=== PATIENT | female | born 1950 | race Caucasian/White ===

== ENCOUNTER 2016-06-27 12:54 | Emergency (ER) | payer OTHER ==
[2016-06-27 13:03] VITALS: BP 123/80; PULSE 99; TEMP 98.5; BMI 21.1
[2016-06-27] MEDS ORDERED: OXYCODONE/APAP 5/325MG COMBO TABLET PO ONE (13:28)
[2016-06-27] MEDS ORDERED: OXYCODONE/APAP 5/325MG COMBO TABLET ONE (13:34)
--- NOTE | 2016-06-27 13:41 | PDOC ---
History of Present Illness - General Chief Complaint: Pain Stated Complaint: RT SIDE PAIN, RASH Time Seen by Provider: 06/27/16 13:05 History Source: Patient Exam Limitations: No Limitations - History of Present Illness Initial Comments: 06/27/16 13:36 65-year-old female with no past medical history presents to the ED with complaints of painful burning stabbing rash to the right abdomen radiating to her right back since yesterday. Patient denies any recent illness or recent stress. Patient also denies any recent vaccinations. Patient denies any fever difficulty breathing, chest pain, nausea, or diarrhea. Patient states took 800 mg 2 yesterday with no effect and decided come to the ER today. Patient when questioned about childhood illnesses states she did have moderate case of chickenpox. Timing/Duration: 24 hours Severity: moderate Associated Symptoms: reports: rash Past History - Past Medical History Allergies/Adverse Reactions: Allergies Allergy/AdvReac Type Severity Reaction Status Date / Time Penicillins Allergy Rash Verified 06/27/16 13:03 Home Medications: Ambulatory Orders Oxycodone HCl/Acetaminophen [Percocet 5-325 mg Tablet] 1 - 2 tab PO Q6H PRN #12 tab MDD 4 06/27/16 Valacyclovir HCl [Valtrex] 1,000 mg PO TID #21 tablet 06/27/16 Other medical history: OSTEOPOROSIS - Psycho/Social/Smoking Cessation Hx Anxiety: No Suicidal Ideation: No Smoking History: Never smoked Hx Alcohol Use: No Drug/Substance Use Hx: No Substance Use Type: None Patient Lives Alone: Yes Lives with/in: lives alone Review of Systems - Review of Systems Able to Perform ROS?: Yes Constitutional: No: Symptoms Reported HEENTM: No: Symptoms Reported Respiratory: No: Symptoms reported Cardiac (ROS): No: Symptoms Reported ABD/GI: No: Symptoms Reported : No: Symptoms Reported Musculoskeletal: No: Symptoms Reported Integumentary: Yes: Rash. No: Pruritus Neurological: No: Symptoms reported Endocrine: No: Symptoms Reported *Physical Exam - Vital Signs Last Vital Signs Temp Pulse Resp BP Pulse Ox 98.5 F 99 H 20 123/80 97 06/27/16 12:58 06/27/16 12:58 06/27/16 12:58 06/27/16 12:58 06/27/16 12:58 - Physical Exam General Appearance: Yes: Nourished, Appropriately Dressed. No: Apparent Distress HEENT: positive: EOMI, ELÍAS, Pharynx Normal. negative: Pale Conjunctivae Neck: positive: Lymphadenopathy (R), Lymphadenopathy (L) Respiratory/Chest: positive: Lungs Clear, Normal Breath Sounds. negative: Chest Tender, Respiratory Distress, Accessory Muscle Use Cardiovascular: positive: Regular Rhythm, Regular Rate. negative: Murmur Gastrointestinal/Abdominal: positive: Soft. negative: Distended, Tenderness Integumentary: positive: Rash (Patient with erythematous cluster/linear papules/ vesicles to the right upper abdomen right upper flank and right thoracic region following the dermatome. Surrounding skin intact. ) Neurologic: positive: Normal Mood/Affect, Motor Strength 5/5 (ambulatory) ED Treatment Course - Medications Given in the ED: ED Medications Discontinued Medications Generic Name Dose Route Start Last Admin Trade Name Freq PRN Reason Stop Dose Admin Oxycodone/Acetaminophen 1 combo 06/27/16 13:28 06/27/16 13:35 Percocet 5/325 - PO 06/27/16 13:29 1 combo ONCE ONE Administration Medical Decision Making - Medical Decision Making 06/27/16 13:39 Patient with nonpruritic painful stabbing rash to her right abdomen spreading to her right mid back since yesterday. Patient states had a moderate case of chickenpox as a child and denies any recent stressors or illnesses. Patient on exam presents as shingles. Patient will be given a dose of Percocet secondary to pain and will be given a prescription for Valtrex upon discharge *DC/Admit/Observation/Transfer Diagnosis at time of Disposition: Shingles Qualifiers: Herpes zoster complications: without complications Qualified Code(s): B02.9 - Zoster without complications - Discharge Dispostion Disposition: HOME Condition at time of disposition: Good - Prescriptions Prescriptions: Oxycodone HCl/Acetaminophen [Percocet 5-325 mg Tablet] 1 - 2 tab PO Q6H PRN #12 tab MDD 4 PRN Reason: Pain Valacyclovir HCl [Valtrex] 1,000 mg PO TID #21 tablet - Referrals Referrals: Rico Medina MD [Primary Care Provider] - - Patient Instructions Printed Discharge Instructions: DI for Shingles Additional Instructions: I recommend apply no topical city affected areas allowing air to dry. Avoid touching area. I also recommend no contact with females or newborns until you complete Valtrex. May take Percocet for pain.
== END 2016-06-27 13:48 | disposition home or self-care (01) ==
LOC: JERFT 12:54
DX: B02.9 Zoster without complications (principal); M81.0 Age-related osteoporosis without current pathological fracture
CPT/HCPCS: 99281-25

== ENCOUNTER 2017-06-27 17:06 | Emergency (ER) | payer OTHER ==
--- NOTE | 2017-06-27 17:13 | PDOC ---
Rapid Medical Evaluation Time Seen by Provider: 06/27/17 17:07 Medical Evaluation: Allergies Allergy/AdvReac Type Severity Reaction Status Date / Time Penicillins Allergy Rash Verified 06/27/17 17:07 06/27/17 17:08 The patient presents with a chief complaint of: [Fall, one hour prior. Was standing on a chair and fell off. Right arm pain and hit right side of head, No LOC. No Vomiting. On ASA. ] I have performed a brief in-person evaluation of this patient. Pertinent physical exam findings: vss, [Edema and bruising to the right elbow. Decreased mobility to the left shoulder pain on palpation tot he left ribs. ] I have ordered the following: [Xray_ Right shoulder, right elbow, Right humerus, Right ribs. ] The patient will proceed to the ED for further evaluation. Discharge Disposition - Diagnosis Fall - Referrals - Patient Instructions - Post Discharge Activity
[2017-06-27 17:14] VITALS: BP 147/75; PULSE 85; TEMP 98.1; BMI 21.1
[2017-06-27] MEDS ORDERED: KETOROLAC TROMETHAMINE 30 MG/1 ML VIAL IM ONE (17:53)
[2017-06-27] MEDS ORDERED: KETOROLAC TROMETHAMINE 30 MG/1 ML VIAL ONE (17:54)
--- NOTE | 2017-06-27 18:10 | PDOC ---
History of Present Illness - General Chief Complaint: Injury Stated Complaint: FALL INJURY Time Seen by Provider: 06/27/17 17:07 History Source: Patient Exam Limitations: No Limitations - History of Present Illness Initial Comments: 06/27/17 18:07 66 yr female was standing up on a chair and fell injured her right arm and elbow. no head trauma denies LOC. daughter translating at bedside. Occurred: reports: this afternoon Severity: reports: moderate Pain Location: reports: upper extremity (right humerus, elbow) Past History - Past Medical History Allergies/Adverse Reactions: Allergies Allergy/AdvReac Type Severity Reaction Status Date / Time Penicillins Allergy Rash Verified 06/27/17 17:07 Home Medications: Ambulatory Orders Aspirin [Adult Aspirin Regimen] 81 mg PO ASDIR 06/27/17 Ketorolac Tromethamine [Toradol] 10 mg PO Q6H PRN #20 tablet 06/27/17 COPD: No Kidney Stones: Yes Other medical history: op - Suicide/Smoking/Psychosocial Hx Smoking History: Never smoked Have you smoked in the past 12 months: No Information on smoking cessation initiated: No Hx Alcohol Use: No Drug/Substance Use Hx: No Substance Use Type: None Trauma Specific PMHX - Complaint Specific PMHX Arthritis: No Back Injury: No Neck Injury: No Hx Sacro Iliac Joint Dysfunction: No Other History: right shoulder arthoscopy Review of Systems - Review of Systems Able to Perform ROS?: Yes Is the patient limited [place] proficient: No HEENTM: No: Symptoms Reported Respiratory: No: Symptoms reported Cardiac (ROS): No: Symptoms Reported ABD/GI: No: Symptoms Reported : No: Symptoms Reported Musculoskeletal: Yes: Symptoms Reported *Physical Exam - Vital Signs Last Vital Signs Temp Pulse Resp BP Pulse Ox 98.1 F 85 18 147/75 100 06/27/17 17:08 06/27/17 17:08 06/27/17 17:08 06/27/17 17:08 06/27/17 17:08 - Physical Exam General Appearance: Yes: Nourished, Appropriately Dressed HEENT: positive: EOMI, ELÍAS. negative: TM Erythema Neck: positive: Supple. negative: Tender Respiratory/Chest: positive: Lungs Clear, Normal Breath Sounds. negative: Chest Tender Cardiovascular: positive: Regular Rhythm, Regular Rate Musculoskeletal: positive: Normal Inspection Extremity: positive: Normal Capillary Refill, Normal Inspection, Tender, Other ( ttp right humerus, limited ROM due to pain nv intact ) Integumentary: positive: Normal Color, Dry, Warm Neurologic: positive: charge entry specialist II-XII NML intact, Fully Oriented, Alert, Normal Mood/ Affect ED Treatment Course - Medications Given in the ED: ED Medications Discontinued Medications Generic Name Dose Route Start Last Admin Trade Name Ralfq PRN Reason Stop Dose Admin Ketorolac Tromethamine 30 mg 06/27/17 17:53 06/27/17 17:55 Toradol Injection - IM 06/27/17 17:54 30 mg ONCE ONE Administration Medical Decision Making - Medical Decision Making 06/27/17 19:45 cc: fell off chair lost balance hit right side arm no head trauma no LOC pain to the right humerus nv intact limited ROM toradol given sling placed pt states her pain has improved after the toradol preliminary readings are negative I have discussed with the daughter and the pt that if the radiologist finds a difference we will callher daughter agrees with plan all questions asked and answered . *DC/Admit/Observation/Transfer Diagnosis at time of Disposition: Fall Qualifiers: Encounter type: initial encounter Qualified Code(s): W19.XXXA - Unspecified fall, initial encounter Arm contusion Qualifiers: Encounter type: initial encounter Laterality: right Qualified Code(s): S40.021A - Contusion of right upper arm, initial encounter - Discharge Dispostion Disposition: HOME Condition at time of disposition: Good - Prescriptions Prescriptions: Ketorolac Tromethamine [Toradol] 10 mg PO Q6H PRN #20 tablet PRN Reason: Pain - Referrals Referrals: Rico Medina MD [Primary Care Provider] - - Patient Instructions Additional Instructions: remove sling at night to sleep but you can use during the day for a few hours a time then remove and gently move your arm so it does not become stiff apply ice every 2hrs for 20 minutes to the areas of pain for the next 2 days follow with your orthopedist in 3-4 days if getting worse or not improving take toradol for pain as directed - Post Discharge Activity
== END 2017-06-27 19:12 | disposition home or self-care (01) ==
LOC: JERFT 17:06
PROC: 3E0233Z Introduction of Anti-inflammatory into Muscle, Percutaneous Approach (ICD-10-PCS; principal; 2017-06-27)
DX: S40.021A Contusion of right upper arm, initial encounter (principal); W07.XXXA Fall from chair, initial encounter; Y93.89 Activity, other specified; Y92.89 Other specified places as the place of occurrence of the external cause; Y99.8 Other external cause status
CPT/HCPCS: 71101-TC-RT; 73030-TC-RT; 73060-TC-RT; 73070-TC-RT; 96372; 99281-25

== ENCOUNTER 2018-09-12 05:05 | Emergency (ER) | payer OTHER ==
[2018-09-12 05:34] VITALS: BP 121/45; PULSE 84; TEMP 97.9; BMI 22.8
[2018-09-12] MEDS ORDERED: IBUPROFEN 600 MG TABLET (FP) PO ONE ×2 (05:44→06:03)
--- NOTE | 2018-09-12 06:14 | PDOC ---
History of Present Illness - General Chief Complaint: Cold Symptoms Stated Complaint: FLU LIKE SYMPTOMS Time Seen by Provider: 09/12/18 05:34 History Source: Patient Exam Limitations: No Limitations Past History - Past Medical History Allergies/Adverse Reactions: Allergies Allergy/AdvReac Type Severity Reaction Status Date / Time naproxen [From Aleve] Allergy Verified 09/12/18 05:34 Penicillins Allergy Rash Verified 09/12/18 05:33 Home Medications: Ambulatory Orders Aspirin [Adult Aspirin Regimen] 81 mg PO ASDIR 06/27/17 Ketorolac Tromethamine [Toradol] 10 mg PO Q6H PRN #20 tablet 06/27/17 COPD: No Kidney Stones: Yes - Suicide/Smoking/Psychosocial Hx Smoking History: Never smoked Have you smoked in the past 12 months: No Hx Alcohol Use: No Drug/Substance Use Hx: No Substance Use Type: None *Physical Exam - Vital Signs Last Vital Signs Temp Pulse Resp BP Pulse Ox 97.9 F 84 18 121/45 L 97 09/12/18 05:12 09/12/18 05:12 09/12/18 05:12 09/12/18 05:12 09/12/18 05:12 - Physical Exam General Appearance: No: Apparent Distress HEENT: positive: Pharynx Normal, Nasal Congestion (mild), Sinus Tenderness (+B/ L frontal and maxillary sinus tenderness), Other (no purulent nasal drainage). negative: Muffled/Hoarse voice, Pharyngeal Erythema, Tonsillar Exudate, Rhinorrhea Respiratory/Chest: positive: Lungs Clear, Normal Breath Sounds. negative: Respiratory Distress Cardiovascular: positive: Regular Rhythm, Regular Rate, S1, S2. negative: Murmur Gastrointestinal/Abdominal: positive: Normal Bowel Sounds, Soft. negative: Tender, Distended, Guarding, Rebound Integumentary: positive: Normal Color Neurologic: positive: Alert ED Treatment Course - Medications Given in the ED: ED Medications Discontinued Medications Generic Name Dose Route Start Last Admin Trade Name Freq PRN Reason Stop Dose Admin Ibuprofen 600 mg 09/12/18 05:44 09/12/18 06:08 Motrin - PO 09/12/18 05:45 600 mg ONCE ONE Administration Medical Decision Making - Medical Decision Making 68 y/o F hx of HLD and arthritis presents with chills, body aches, sore throat, frontal NOLEN, productive cough x 5 days. Also mentions having fever last night. Has been using Naprosyn with minimal relief of pain. Denies taking any antipyretics today. Denies sob, cp, abd pain, n/v/d. Patient afebrile Likely sinus headache Given Motrin 09/12/18 06:09 *DC/Admit/Observation/Transfer Diagnosis at time of Disposition: Sinusitis Qualifiers: Sinusitis location: unspecified location Chronicity: acute Recurrence: non- recurrent Qualified Code(s): J01.90 - Acute sinusitis, unspecified - Discharge Dispostion Disposition: HOME Condition at time of disposition: Stable Decision to Admit order: No - Referrals Referrals: Rico Medina MD [Primary Care Provider] - 2 Days - Patient Instructions Printed Discharge Instructions: DI for Sinusitis Additional Instructions: Thank you for choosing [facility]. It was a pleasure taking care of you. Recommend using Nedi-Pot to help alleviate congestion and help with sinus headache Can also use saline nasal spray If symptoms don't improve in 10 days, follow-up with your doctor Return to the Emergency Department if your symptoms worsen or persist or have other concerning symptoms. - Post Discharge Activity
== END 2018-09-12 06:26 | disposition home or self-care (01) ==
LOC: JER 05:05
DX: J01.90 Acute sinusitis, unspecified (principal)
CPT/HCPCS: 99281-25

== ENCOUNTER 2018-10-23 13:41 | Emergency (ER) | payer OTHER | END 2018-10-23 14:30 | disposition home or self-care (01) | LOC: JERFT 13:41 ==

== ENCOUNTER 2024-04-28 04:12 | Observation (INO) | payer OTHER ==
[2024-04-28] MEDS ORDERED: LIDOCAINE 4% PATCH TP ONE (06:02)
[2024-04-28] MEDS: LIDOCAINE 5% TOPICAL PATCH TP ONE (06:09)
[2024-04-28] MEDS: diazePAM 5 MG TABLET PO SCH (06:09)
[2024-04-28 06:21] LABS: BASO % 0.3 % (0-2.0); HEMOGLOBIN 13.6 GM/dL (10.7-15.3); LYMPH % 26.1 % (8-40); MCH 29.5 pg (25.7-33.7); MCHC 32.3 g/dl (32.0-36.0); MEAN CELL VOLUME 91.3 fl (80-96); MEAN PLT VOLUME 8.5 fl (7.5-11.1); MONO % 8.2 % (3.8-10.2); NEUT % 59.4 % (42.8-82.8); PLATELET COUNT 150 10^3/uL (134-434); RDW 13.7 % (11.6-15.6); WHITE BLOOD COUNT 5.7 K/mm3 (4.0-10.0)
[2024-04-28 07:31] LABS: POTASSIUM 4.4 mmol/L (3.5-5.1)
[2024-04-28 07:33] LABS: ALBUMIN 3.7 g/dl (3.4-5.0); BLOOD UREA NITROGEN 20.6 mg/dL (7-18); CALCIUM 9.7 mg/dL (8.5-10.1)
[2024-04-28 07:36] LABS: CREATININE 0.8 mg/dL (0.55-1.3)
[2024-04-28 07:38] LABS: BILIRUBIN,TOTAL 0.4 mg/dL (0.2-1); TOT PROT 6.8 g/dl (6.4-8.2)
[2024-04-28] MEDS ORDERED: ACETAMINOPHEN 325 MG TABLET (FP) PO PRN (08:38)
[2024-04-28 11:45] VITALS: BMI 20.3
[2024-04-28] MEDS: traMADol HCL 50 MG TABLET PO PRN ×2 (13:05→22:25)
[2024-04-28] MEDS: HEPARIN NA (PORCINE) 5,000 UNITS/ML 1ML VIAL SQ SCH (13:19)
[2024-04-28] MEDS: LIDOCAINE 5% TOPICAL PATCH TP SCH (15:25)
[2024-04-28] MEDS: PANTOPRAZOLE 40 MG TABLET PO SCH (15:25)
[2024-04-28] MEDS: IBUPROFEN 600 MG TABLET (FP) PO PRN (16:36)
[2024-04-28 18:11] LABS: PH,URINE 6.5 (5.0-8.0); URINE APPEARANCE CLEAR; URINE BILIRUBIN NEGATIVE (NEGATIVE); URINE COLOR YELLOW; URINE GLUCOSE (UA) NEGATIVE (NEGATIVE); URINE KETONE NEGATIVE (NEGATIVE); URINE LEUK ESTERASE NEGATIVE (NEGATIVE); URINE NITRITE NEGATIVE (NEGATIVE); URINE PROTEIN NEGATIVE (NEGATIVE); URINE UROBILINOGEN 0.2 mg/dL (0.2-1.0)
[2024-04-28] MEDS: CYCLOBENZAPRINE HCL 5 MG TABLET PO SCH (22:26)
[2024-04-28] MEDS: LIDOCAINE PATCH REMOVAL MC ONE (22:30)
[2024-04-28] MEDS: LIDOCAINE PATCH REMOVAL MC SCH (22:30)
[2024-04-29 08:19] LABS: POTASSIUM 4.3 mmol/L (3.5-5.1)
[2024-04-29 08:20] LABS: BLOOD UREA NITROGEN 25.5 mg/dL (7-18); CALCIUM 9.5 mg/dL (8.5-10.1)
[2024-04-29 08:24] LABS: CREATININE 0.9 mg/dL (0.55-1.3)
[2024-04-29 08:26] LABS: BASO % 0.1 % (0-2.0); EOS % 7.2 % (0-4.5); HEMATOCRIT 41.3 % (32.4-45.2); HEMOGLOBIN 13.8 GM/dL (10.7-15.3); LYMPH % 28.4 % (8-40); MCHC 33.3 g/dl (32.0-36.0); MEAN PLT VOLUME 8.7 fl (7.5-11.1); MONO % 8.8 % (3.8-10.2); NEUT % 55.5 % (42.8-82.8); PLATELET COUNT 143 10^3/uL (134-434); RDW 13.7 % (11.6-15.6); WHITE BLOOD COUNT 4.7 K/mm3 (4.0-10.0)
[2024-04-30 07:16] VITALS: RESP 18
[2024-04-30 13:57] VITALS: BP 118/64; PULSE 91; TEMP 97.3
== END 2024-04-30 15:30 | disposition home or self-care (01) ==
LOC: JER 04:12 → JERBED 08:40 → J7W 11:02
PROVIDERS: ADMIT Internal Medicine; ATTEND Internal Medicine
PROC: 3E023GC Introduction of Other Therapeutic Substance into Muscle, Percutaneous Approach (ICD-10-PCS; principal; 2024-04-28)
DX: M54.16 Radiculopathy, lumbar region (principal); M54.9 Dorsalgia, unspecified; Z88.0 Allergy status to penicillin; Z88.8 Allergy status to other drugs, medicaments and biological substances; R26.2 Difficulty in walking, not elsewhere classified; R25.2 Cramp and spasm
CPT/HCPCS: 36415; 72131-TC; 72146-TC; 72148-TC; 80048; 80053; 81003; 82962; 84443; 85025; 96372; 97116-GP; 97161-GP; 99285-25; G0378; J1644